=== PATIENT | female | born 1965 | race Caucasian/White ===

== ENCOUNTER 2017-02-18 02:57 | Emergency (ER) | payer BC ==
[~2017-02-18] VITALS: Ht 165.1 cm; Wt 54.4 kg
[~2017-02-18 02:57] MED LIST: VENLAFAXINE HCL25 MG ORAL
[2017-02-18 03:30] VITALS: BP 118/71
--- NOTE | 2017-02-18 03:36 | Emergency Room Report ---
History of Present Illness General Chief Complaint: Vomiting Source: Patient Present Illness HPI Is a 52-year-old female who presents with chief complaint of vomiting after eating a marijuana brownie bar. Onset was about an hour ago. Complaining of weakness. Denies any fever chills denies any diarrhea. Never had this problem before. No other complaint. Allergies: Coded Allergies: PENICILLINS (Verified Allergy, Unknown, 02/18/17) Patient History Past Medical History: see triage record, old chart reviewed Past Surgical History: other Pertinent Family History: none Social History: Denies: smoking Now: No Immunizations: other Reviewed Nursing Documentation: PMH: Agreed, PSxH: Agreed Nursing Documentation-PMH History Of Psychiatric Problem: Yes - DEPRESSION Review of Systems Eye: Denies: blurred vision, eye pain ENT: Denies: ear pain, nose congestion, throat swelling Respiratory: Denies: cough, shortness of breath Cardiovascular: Denies: chest pain, palpitations Gastrointestinal: Reports: nausea, vomiting, Denies: abdominal pain Musculoskeletal: Denies: back pain, joint pain Skin: Denies: rash Neurological: Denies: headache, numbness Endocrine: Denies: increased thirst, increased urine Hematologic/Lymphatic: Denies: easy bruising All Other Systems: negative except mentioned in HPI Physical Exam Vital Signs Date Time Temp Pulse Resp B/P Pulse Ox O2 Delivery O2 Flow Rate FiO2 02/18/17 02:50 97.5 93 18 114/76 99 Room Air vitals normal Sp02 EP Interpretation: reviewed, normal General Appearance: well appearing, no apparent distress, alert Head: normocephalic, atraumatic Eyes: bilateral eye EOMI, bilateral eye PERRL ENT: hearing grossly normal, normal pharynx Neck: full range of motion, supple, no meningismus Respiratory: chest non-tender, lungs clear, normal breath sounds Cardiovascular #1: regular rate, rhythm, no murmur Gastrointestinal: normal bowel sounds, non tender, no mass, no organomegaly, no bruit, non-distended Musculoskeletal: back normal, gait/station normal, normal range of motion Neurologic: normal inspection, oriented x3 Psychiatric: anxious Skin: warm/dry Medical Decision Making Diagnostic Impression: Primary Impression: Vomiting Qualified Codes: R11.2 - Nausea with vomiting, unspecified Additional Impression: Adverse reaction to cannabis Qualified Codes: T40.7X5A - Adverse effect of cannabis (derivatives), initial encounter ER Course Patient presents with adverse affect of marijuana. No evidence of obstruction. We'll discharge home. Last Vital Signs Date Time Temp Pulse Resp B/P Pulse Ox O2 Delivery O2 Flow Rate FiO2 02/18/17 02:50 97.5 93 18 114/76 99 Room Air Status: improved Disposition: HOME, SELF-CARE Condition: Stable Additional Instructions: Abstain from marijuana. Followup with your Dr. in 7 days. Return if worse. LEONARDO FERRER M.D. Feb 18, 2017 03:36
[2017-02-18 04:30] VITALS: BP 109/71
== END 2017-02-18 04:58 | disposition home or self-care (01) ==
LOC: EDBD 02:57 → EMR 04:51
DX: T40.7X5A Adverse effect of cannabis (derivatives), initial encounter (principal); R11.2 Nausea with vomiting, unspecified; X58.XXXA Exposure to other specified factors, initial encounter; Y93.9 Activity, unspecified; Y92.9 Unspecified place or not applicable; Z88.0 Allergy status to penicillin
CPT/HCPCS: 96374; 99284; J2405